=== PATIENT | female | born 1970 | race Caucasian/White ===

== ENCOUNTER → 2017-02-01 | Outpatient (CLI) | payer OTHER ==
[~2017-02-01] MED LIST: PRIL20TA2 PO; TYLE325T PO; Z.0.NO CURRENT MEDS
[2017-02-01 11:27] LABS: AUTOMATED NEUTROPHIL # 2.6 TH/MM3 (1.8-7.7); BASOPHIL # 0.1 TH/MM3 (0-0.2); BASOPHIL % 2.4 % (0.0-2.0); EOSINOPHIL # 0.3 TH/MM3 (0-0.4); EOSINOPHIL % 5.8 % (0.0-4.0); HEMATOCRIT 40.5 % (35.0-46.0); HEMO FLAGS DIFF FINAL; LYMPH % 24.1 % (9.0-44.0); MEAN CELL VOLUME 98.5 FL (80.0-100.0); MEAN CORPUSCULAR HEMOGLOBIN 32.7 PG (27.0-34.0); MEAN CORPUSCULAR HGB CONC 33.2 % (32.0-36.0); MONO % 6.6 % (0.0-8.0); NEUT % 61.1 % (16.0-70.0); PLATELET COUNT 173 TH/MM3 (150-450); RED BLOOD COUNT 4.11 MIL/MM3 (4.00-5.30); RED CELL DISTRIBUTION WIDTH 13.2 % (11.6-17.2); WHITE BLOOD COUNT 4.3 TH/MM3 (4.0-11.0)
[2017-02-01 11:32] LABS: BACTERIA, URINE RARE /hpf; BLOOD, URINE NEG (NEG); COMMENT (UR) CULT NOT INDICATED; CULTURE IF INDICATED CULT NOT INDICATED; GLUCOSE,URINE NEG (NEG); KETONE, URINE NEG (NEG); NITRITE,URINE NEG (NEG); SQUAMOUS EPITHELIAL CELL URINE 1 /hpf (0-5); URINE COLOR LIGHT-YELLOW (YELLW/STRAW)
[2017-02-01 11:54] LABS: POTASSIUM 3.8 MEQ/L (3.5-5.1)
== END ==
LOC: CPRE 10:35
PROVIDERS: ATTEND Obstetrics & Gynecology
DX: Z01.812 Encounter for preprocedural laboratory examination (principal); D25.9 Leiomyoma of uterus, unspecified
CPT/HCPCS: 36415; 80048; 81001; 85025; 86850; 86900; 86901

== ENCOUNTER → 2017-02-03 | Day surgery (SDC) | payer OTHER ==
[~2017-02-03] VITALS: Ht 176.5 cm; Wt 69.6 kg
[~2017-02-03] MED LIST changes: +*MEPERIDINE 25 MG INJ VIAL PERIprocedural Use ONLY ONE; +*morphine SULFATE 8 MG/ML PERIprocedure ONLY ONE; +ACETAMINOPHEN 1000 MG/100 ML VIAL IV ONE; +APREPITANT 40 MG CAP PO SCH; +ARTIFICIAL TEARS OPTH OINT 3.5 APPLIC/3.5 GM TUBO ONE; +BUPIVACAINE HCL PF 0.25% 30 ML VIAL INFIL ONE; +CHLORHEXIDINE GLUCONATE 2 % 1 PACK (2 CLOTHS) TOPICAL PRN; +DEXAMETHASONE SOD PHOS 4 MG/ML VIAL ONE; +DO NOT ADM ANY ANTICOAGULANT DRUGS PRN; +FAMOTIDINE 20 MG/2 ML VIAL ONE; +HYDROmorphone HCL PF 1 MG/ML VIAL IVP PRN; +HYDROmorphone HCL PF 2 MG/ML VIAL ONE; +IBUPROFEN 600 MG TAB PO PRN; +INSULIN HUMAN REGULAR 1,000 UNITS/10 ML VIAL SQ PRN; +KETOROLAC TROMETHAMINE 30 MG/ML (IVP) VIAL IVP PRN; +KETOROLAC TROMETHAMINE 60 MG/2 ML (IM) VIAL IM ONE; +LACTATED RINGER'S 1000 ML IV PRN; +LORazepam 0.5 MG TAB PO PRN; +METOPROLOL TARTRATE 25 MG TAB PO PRN; +MIDAZOLAM HCL 2 MG/2 ML VIAL ONE; +NORMOSOL R INJ 1,000 ML IV ONE; +ONDANSETRON HCL 4 MG/2 ML VIAL IV PUSH ONE; +ONDANSETRON HCL 4 MG/2 ML VIAL IVP PRN; +POVIDONE IODINE 5% (ANTISEPSIS KIT) 4 APPLICATIONS EACH NARE PRN; +PROMETHAZINE INJ 25 MG/ML VIAL IM PRN; +PROPOFOL 200 MG/20 ML AMP IV ONE; +SODIUM CHLORID 0.9% 500 ML IV PRN; +SODIUM CHLORIDE 0.9% FLUSH 10 ML FLUSH IV FLUSH PRN; +SODIUM CHLORIDE 0.9% FLUSH 10 ML FLUSH IV FLUSH SCH; +SUGAMMADEX SODIUM 200 MG/2 ML VIAL IV PUSH ONE; -Z.0.NO CURRENT MEDS; +ceFAZolin 2 GM PREMIX 50 ML IV SCH; +fentaNYL CITRATE 250 MCG/5 ML AMP ONE; +oxyCODONE/ACETAMINOPHEN 5 MG/325 MG TAB PO PRN
[2017-02-03 05:55] VITALS: BP 121/78; PULSE 78; RESP 20; TEMP 97.6; O2SAT 98
--- NOTE | 2017-02-03 09:46 | MP ---
cc: JUSTIN BOWLES CARMEN DATE OF SURGERY 02/03/2017 PREOPERATIVE DIAGNOSIS Patient with a left ovarian mass, suspect endometrioma, history of endometriosis and previous carcinoid tumor of the appendix. PROCEDURE Operative laparoscopy with left salpingo-oophorectomy, lysis of adhesions, removal of peritoneal implants over the right uterosacral ligament. POSTOPERATIVE DIAGNOSIS Patient with a left ovarian mass, suspect endometrioma, history of endometriosis and previous carcinoid tumor of the appendix. SURGEON Justin Bowles MD ANESTHESIA General with endotracheal intubation ESTIMATED BLOOD LOSS Minimal DRAINS Forrester to gravity during the procedure. OPERATIVE FINDINGS The patient had significant distortion of the left tube and ovary secondary to endometriosis. The ovary was adherent to the sidewall with a multilobulated endometrioma on the medial aspect of the ovary, significant scar tissue involving the distal colon and sigmoid colon were involved. The right ovary was normal size and shape. There were no lesions identified. There was a large peritoneal window underneath the right uterosacral ligament which was excised and sent separately for pathology. The distal ileum, cecum and ascending colon all appeared normal. The liver edge is normal. PROCEDURE DESCRIPTION The patient received Ancef 2 grams prophylactically. She underwent general anesthesia with endotracheal intubation. She was carefully positioned in the dorsolithotomy position using Diony stirrups on the lower extremities with sequential placed bilaterally for VTE prophylaxis. She was prepped and draped, time-out was conducted, agreed by all present in the room. Forrester catheter was then inserted by sterile technique. A Hulka tenaculum was easily attached and secured to the cervix for manipulation. Retractors were removed. Gloves were changed. The abdomen was draped for the laparoscopy. The umbilical port site was injected with quarter percent plain Marcaine. A 5-mm visible port trocar was used to gain entry into the peritoneal cavity without complication. Two liters of CO2 were insufflated at low pressure. The patient was then placed in steep Trendelenburg positioning and accessory ports were placed using 8 mm trocars one on the right and one on the left. The umbilical port was increased to a 12 mm camera port and a suprapubic port was placed, 5 mm disposable trocar for irrigation during the procedure. The Coraid patient cart was then side docked, #2 arm on the left, #1 arm on the right. A 0 degrees camera lens was inserted. Monopolar scissors were connected to the two arm and a bipolar fenestrated grasper to the #1 arm. No collisions or interference were noted. Good articulation was noted. Attention was directed to the surgeon cart where visualization of the anatomy was made. Documentation of the known pathology consistent with the preop diagnosis and imaging studies. The decision was to excise the left ovary complete with the endometrioma. This required a combination of dissection with hot and cold scissors removing the sigmoid colon serosal surface away from the left adnexa, identifying the infundibular pelvic vessels by skeletonization and retroperitoneal dissection ligating the vessels completely without difficulty. Dissection of the medial aspect of the ovary required sharp dissection away from the sidewall. The ureter was out of the operative field. The uterine ovarian pedicle was then secured and ligated hemostatically. This allowed separation of the left adnexa completely. The tube and ovary were placed in the dependent position in the cul-de-sac and then evaluation and ablation of endometrial implants of the cul-de-sac and right pelvic sidewall were conducted. The peritoneal window and defect of the uterosacral ligament on the right was elevated with a grasper and then a combination of sharp dissection with monopolar electrocautery was used to resect the window and this was done hemostatically without issue. This was then removed through the assistant quality manager port and sent as a peritoneal biopsy. Irrigation of the pelvis was complete without active bleeding or hematoma. At this point, the da Mitzi was undocked and straight laparoscopy was used to complete the case. The left tube and ovary were secured using an EndoCatch collection bag through the 12 meters port and then brought through the skin incision by simple retraction and removal of the tube and ovary complete inside the bag without spillage of any contents. Irrigation of the pelvis was then conducted to confirm hemostasis. After evacuation of all free fluid, hemostasis confirmed. At this point, the umbilical port was closed with a crossbow with a #1 Vicryl suture with good result. Pneumoperitoneum was completely decompressed and then the incisions was closed with a subcuticular stitch of 4-0 Monocryl with Steri-Strips and Band-Aids. The Hulka tenaculum and Forrester catheter were removed prior to the patient being out of anesthesia without issue. There was no vaginal bleeding. At the completion of the case, final count was correct. The patient was extubated and taken to the recovery room on room air. MD GIOVANNI Hartley/BOWEN /9:18 AM /9:28 AM
[2017-02-03 12:45] VITALS: BP 95/63; PULSE 63; RESP 14; TEMP 97.7; O2SAT 99
== END | disposition home or self-care (01) ==
LOC: HSDC 05:46
PROVIDERS: ATTEND Obstetrics & Gynecology
DX: N80.2 Endometriosis of fallopian tube (principal); N80.1 Endometriosis of ovary; N80.3 Endometriosis of pelvic peritoneum
CPT/HCPCS: 00840; 58661; 58662; 88305; J0131; J1100; J1170; J1885; J2175; J2250; J2270; J2405; J2550; J3010; J7120; J8501